=== PATIENT | female | born 1970 | race African-American/Black ===

== ENCOUNTER 2017-08-22 15:15 | Outpatient (CLI) | payer OTHER | END 2017-08-22 15:16 | disposition home or self-care (01) | LOC: CTENTCT 15:15 | PROVIDERS: ATTEND Otolaryngology Plastic Surgery within the Head & Neck | DX: J32.9 Chronic sinusitis, unspecified (principal) | CPT/HCPCS: 70486 ==

== ENCOUNTER 2018-03-27 12:17 | Outpatient (CLI) | payer BC | END 2018-03-27 12:18 | disposition home or self-care (01) | LOC: BICMAMMO 12:17 | PROVIDERS: ATTEND Family Medicine | DX: Z12.31 Encounter for screening mammogram for malignant neoplasm of breast (principal) | CPT/HCPCS: 77063; 77067 ==

== ENCOUNTER 2021-02-02 11:59 | Day surgery (SDC) | payer BC ==
[2021-02-01 08:27] VITALS: BMI 51.3
[2021-02-02] MEDS ORDERED: PROPOFOL 200 MG/20 ML VIAL ONE (13:30)
[2021-02-02] MEDS ORDERED: Lidocaine 1% PF 5 ML VIAL ONE (13:30)
[2021-02-02] MEDS ORDERED: Midazolam HCl 2 mg/2 ml Vial ONE (13:40)
[2021-02-02] MEDS ORDERED: Ondansetron PF 4 MG/2 ML Vial ONE (15:19)
[2021-02-02] MEDS ORDERED: Fentanyl 100 MCG/2 ML VIAL ONE (15:30)
== END 2021-02-02 16:19 | disposition home or self-care (01) ==
LOC: MRI 11:59
PROVIDERS: ATTEND Nurse Practitioner Family
DX: M54.12 Radiculopathy, cervical region (principal); M48.02 Spinal stenosis, cervical region; E66.9 Obesity, unspecified; Z68.43 Body mass index [BMI] 50.0-59.9, adult; Z79.899 Other long term (current) drug therapy; Z91.010 Allergy to peanuts; Z98.84 Bariatric surgery status
CPT/HCPCS: 72141; J2250; J2405; J2704; J3010

== ENCOUNTER 2022-01-31 10:52 | Day surgery (SDC) | payer BC ==
[2022-01-30 11:17] VITALS: BMI 42.4
[2022-01-31] MEDS ORDERED: PROPOFOL 200 MG/20 ML VIAL ONE (13:15)
[2022-01-31] MEDS ORDERED: Lidocaine 1% PF 5 ML VIAL ONE (13:15)
== END 2022-01-31 14:25 | disposition home or self-care (01) ==
LOC: SDC 10:52
PROVIDERS: ATTEND Internal Medicine Gastroenterology
PROC: 0DJD8ZZ Inspection of Lower Intestinal Tract, Via Natural or Artificial Opening Endoscopic (ICD-10-PCS; principal; 2022-01-31)
DX: Z12.11 Encounter for screening for malignant neoplasm of colon (principal); K64.8 Other hemorrhoids; Q43.8 Other specified congenital malformations of intestine; K21.9 Gastro-esophageal reflux disease without esophagitis; Z79.899 Other long term (current) drug therapy; Z88.8 Allergy status to other drugs, medicaments and biological substances; Z91.010 Allergy to peanuts
CPT/HCPCS: J2704